=== PATIENT | male | born 1960 | race Caucasian/White ===

== ENCOUNTER 2020-02-27 11:20 | Emergency (ER) | payer OTHER, SELFPAY ==
[2020-02-27 11:47] VITALS: BP 187/99; PULSE 60; RESP 16; TEMP 37.5; O2SAT 95; BMI 40.6
--- NOTE | 2020-02-27 12:12 | ED_ITS ---
HPI - Back Pain/Injury General Chief Complaint: Back Pain/Injury Stated Complaint: back pain Time Seen by Provider: 02/27/20 11:22 Source: patient Mode of arrival: ambulatory Limitations: no limitations and language barrier (Romanian speaking ) History of Present Illness HPI Narrative: 59-year-old male with a past medical history of hypertension, chronic back pain here with acute on chronic low back pain x 5 days. Patient tells me he has had right lower back pain for about 5 days. The pain does sometimes radiate into the buttocks and posterior thigh with intermittent numbness. No injury, fall or trauma. No incontinence or bowel or bladder complaints. No saddle anesthesia. No fevers or chills. Taking naproxen at home which does seem to improve the pain briefly but then it returns. MD elicited complaint: back pain Related Data Previous Rx's Medication Instructions Recorded cyclobenzaprine 10 mg PO TID PRN #10 tab 02/27/20 lidocaine [Lidoderm] 1 patch TOPICAL DAILY #15 ea 02/27/20 naproxen 500 mg PO BID #20 tab 02/27/20 Allergies Allergy/AdvReac Type Severity Reaction Status Date / Time codeine [CODEINE] Allergy Intermediate RASH Verified 02/27/20 11:53 Review of Systems Review of Systems: Yes all other systems are reviewed and are negative Constitutional: Constitutional: Reports no additional constitutional complaints, Denies body ache(s), Denies chills, Denies fever(s), Denies headache(s) and Denies weakness Eyes: Eyes: Reports no additional eye complaints and Denies change in vision ENT: Reports system reviewed and no additional complaints, except as documented, Denies dizziness, Denies headache(s), Denies nasal congestion, Denies nasal discharge and Denies neck pain Cardiovascular: Cardiovascular: Reports no additional cardiovascular complaints, Denies chest pain, Denies leg edema and Denies dyspnea Respiratory: Respiratory: Reports no additional respiratory complaints, Denies cough and Denies dyspnea Gastrointestinal: Gastrointestinal: Reports no additional gastrointestinal complaints, Denies abdominal pain, Denies diarrhea, Denies nausea and Denies vomiting Genitourinary: Genitourinary: Denies urinary incontinence Musculoskeletal: Musculoskeletal: Reports no additional musculoskeletal complaints, Reports back pain, Denies arthralgias, Denies joint swelling, Denies neck pain, Reports numbness and Denies tingling Integumentary/Breasts: Skin/Breast: Reports system reviewed and no additional complaints, except as docu and Denies rash Neurologic: Reports system reviewed and no additional complaints, except as documented, Denies Abnormal speech present, Denies dizziness, Denies headache(s), Reports numbness, Denies tingling and Denies weakness PMFSH Past Medical History Source: old records reviewed, obtained from family and nursing notes reviewed Medical History Chronic back pain HTN (hypertension) Social History Social History Advance Directives: No Advance Directives Information Provided: No Physical Exam Vital Signs: Vital Signs: Vital Signs Temp Pulse Resp BP Pulse Ox 02/27/20 11:47 99.5 F 60 16 187/99 H 95 Body Mass Index 40.6 Const: General: cooperative, healthy appearing, comfortable and no acute distress Orientation/consciousness: patient oriented x3 Limitations: no limitations HENMT: Head: Yes normal to inspection Ears: hearing grossly normal bilaterally General nose exam: Normal external nose present Face and sinus: Yes normal facial exam Mouth: Normal oral and palatal mucosa present Throat: Yes posterior oropharynx normal Eyes: General: appearance normal, both eyes and all related structures Pupils: Equal, round and reactive pupils present Neck: Neck: Yes normal visual inspection Chest: Chest palpation & inspection: normal inspection of the chest Resp: Effort & Inspection: normal respiratory effort Auscultation: clear to auscultation bilaterally Cardio: Rate: regular rate Rhythm: regular rhythm Peripheral pulses: Peripheral pulses 2+ throughout GI: Inspection: Yes normal to inspection Palpation (GI): Soft to palpation and nontender Auscultation: normal bowel sounds : General: Yes no CVA tenderness Back/Spine/Pelvis: Other: Right lumbar soft tissue tenderness no midline tenderness, step-offs or deformities. Palpable muscle spasm. Pain is worsened with flexion,extension, lateral rotation of the lumbar spine. Back: no CVA tenderness Thoracic/Lumbar Spine: thoracic and lumbar spine normal to inspection and straight leg raise positive (right side ) Sacroiliac joints: on the right tender to palpation and by passive hyperextension of lower ext Skin: General skin exam: no rashes or lesions noted Neuro: General: patient oriented x3, no focal motor deficits and normal sensation to monofilament Cranial nerves: Yes CN's II-XII intact bilaterally and Yes Equal, round and reactive pupils present Cognition (Neuro): normal cognition Speech: No Abnormal speech present Gait exam (Neuro): Normal gait present Motor exam (neuro): 5/5 motor strength present throughout Sensory Exam: Normal double simultaneous stimulation for sensation Deep tendon reflexes (DTR's): Right patellar reflex intensity grade: 2+ and Left patellar reflex intensity grade: 2+ Extrem: General: Yes normal to inspection Course Course Course Narrative: Acute on chronic right lower back pain. No neurological deficits for red flag symptoms. The patient does have some posterior SI joint discomfort. Will check imaging, given IM Toradol and reassess. 1400- Exam consistent with right hip tendinitis. Patient is feeling improved after receiving Toradol here. Reviewed worrisome signs and symptoms and when to return to the emergency department. Comfortable discharge home. MDM - Back Pain/Injury Medical Records Attestation: I reviewed the patient's medical records. Lab Data Attestation: I reviewed the patient's lab results. Imaging Data right hip/pelvis xray: Attestation: I personally reviewed and interpreted this imaging study as follows: Radiologist's impression: EXAMINATION: XR HIP, RIGHT CLINICAL INFORMATION: No trauma. Pain. COMPARISON: None TECHNIQUE: AP and frog-leg lateral views of the right hip. AP view of the pelvis. FINDINGS: Mild to moderate osteoarthritis in the hips is characterized by prominent acetabular osteophytes as well as subchondral sclerosis. The joint spaces appear relatively well-preserved. No fractures. Enthesopathic spurring is present at the anterior superior iliac spines and at the greater trochanters. Foci of calcification at the right greater trochanter may correspond to calcific tendinitis (hydroxyapatite deposition disease) at the hip abductor and short external rotator insertions. Similar foci of hydroxyapatite evident disease are suspected at the origin of the left hamstring tendons of the left ischial tuberosity, measuring up to 4 mm in diameter. Soft tissues otherwise unremarkable. Degenerative spondylosis is present in the lower lumbar spine. XR/XR hip RT w PEL1V IMPRESSION: 1. Mild to moderate osteoarthritis in the hips. 2. Calcific tendinitis of the right greater trochanter and left ischial tuberosity. 3. Degenerative spondylosis in the lower lumbar spine. Discharge Plan Discharge Clinical Impression: Hip tendinitis Qualifiers: Laterality: right Qualified Code(s): M76.891 - Other specified enthesopathies of right lower limb, excluding foot Lumbar strain Qualifiers: Encounter type: initial encounter Qualified Code(s): S39.012A - Strain of muscle, fascia and tendon of lower back, initial encounter Patient Disposition: Home, Self-Care Instructions: Acute Low Back Pain (ED), Tendinitis (ED) Additional Instructions: Gentle stretching Heat or ice Follow-up with your PCP and back specialist. You may need referral for physical therapy. Prescriptions: New naproxen 500 mg tablet 500 mg PO BID Qty: 20 RF: 0 lidocaine [Lidoderm] 5 % adhesive patch,medicated 1 patch topical DAILY Qty: 15 RF: 0 cyclobenzaprine 10 mg tablet 10 mg PO TID PRN (Reason: muscle spasm) Qty: 10 RF: 0 Referrals: Physician,Unknown [Primary Care Provider] - 2 days Interventions: ED Discharge Assessment Last Done: 02/27/20 14:15 Discharge Date/Time: 02/27/20 14:15 Print Language: Romanian
--- NOTE | 2020-02-27 12:31 | XR_ITS ---
EXAMINATION: XR HIP, RIGHT CLINICAL INFORMATION: No trauma. Pain. COMPARISON: None TECHNIQUE: AP and frog-leg lateral views of the right hip. AP view of the pelvis. FINDINGS: Mild to moderate osteoarthritis in the hips is characterized by prominent acetabular osteophytes as well as subchondral sclerosis. The joint spaces appear relatively well-preserved. No fractures. Enthesopathic spurring is present at the anterior superior iliac spines and at the greater trochanters. Foci of calcification at the right greater trochanter may correspond to calcific tendinitis (hydroxyapatite deposition disease) at the hip abductor and short external rotator insertions. Similar foci of hydroxyapatite evident disease are suspected at the origin of the left hamstring tendons of the left ischial tuberosity, measuring up to 4 mm in diameter. Soft tissues otherwise unremarkable. Degenerative spondylosis is present in the lower lumbar spine. XR/XR hip RT w PEL1V IMPRESSION: 1. Mild to moderate osteoarthritis in the hips. 2. Calcific tendinitis of the right greater trochanter and left ischial tuberosity. 3. Degenerative spondylosis in the lower lumbar spine.
[2020-02-27] MEDS: Ketorolac Tromethamine 60 MG/2 ML VIAL IM (13:05)
== END 2020-02-27 14:15 | disposition home or self-care (01) ==
PROVIDERS: Emergency Provider Emergency Medicine
DX: S39.012A Strain of muscle, fascia and tendon of lower back, initial encounter (principal); M76.891 Other specified enthesopathies of right lower limb, excluding foot; I10 Essential (primary) hypertension; M79.605 Pain in left leg; M79.604 Pain in right leg; M25.552 Pain in left hip; M25.551 Pain in right hip; X58.XXXA Exposure to other specified factors, initial encounter; Y93.9 Activity, unspecified; Y92.9 Unspecified place or not applicable; Y99.9 Unspecified external cause status
CPT/HCPCS: 73502; 96372; 99283; 99284; J1885

== ENCOUNTER 2020-03-28 08:57 | Emergency (ER) | payer OTHER, SELFPAY ==
[2020-03-28 09:14] VITALS: BP 167/92; PULSE 76; RESP 20; TEMP 36.6; O2SAT 97; BMI 41.8
--- NOTE | 2020-03-28 09:44 | ED_ITS ---
HPI - Back Pain/Injury General Chief Complaint: Back Pain/Injury <Rafiq Falcon NP - Last Filed: 03/28/20 09:51> Stated Complaint: back pain,no inj <Rafiq Falcon NP - Last Filed: 03/28/20 09:51> Time Seen by Provider: 03/28/20 09:44 <Rafiq Falcon NP - Last Filed: 03/28/20 09:51> Source: patient <Rafiq Falcon NP - Last Filed: 03/28/20 09:51> Mode of arrival: ambulatory <Rafiq Falcon NP - Last Filed: 03/28/20 09:51> Limitations: no limitations <Rafiq Falcon NP - Last Filed: 03/28/20 09:51> History of Present Illness HPI Narrative: Pain is setting of chronic back pain. He was seen here a month ago for similar states acute exacerbation while he was trying to get out of bed and felt like a pull sensation in the right lower back. He was given muscle relaxant which work well from the last time he ran out in addition is given lidocaine but his short does not cover this. At this time he took naproxen prior to arrival and his pain has almost fully resolved. <Rafiq Falcon NP - Last Filed: 03/28/20 09:51> MD elicited complaint: back pain <Rafiq Falcon NP - Last Filed: 03/28/20 09:51> Pertinent past history: prior back pain <Rafiq Falcon NP - Last Filed: 03/28/20 09:51> Timing: constant <Rafiq Falcon NP - Last Filed: 03/28/20 09:51> Severity: mild <Rafiq Falcon NP - Last Filed: 03/28/20 09:51> Similar Symptoms Previously: Yes <Rafiq Falcon NP - Last Filed: 03/28/20 09:51> Quality: aching <Rafiq Falcon NP - Last Filed: 03/28/20 09:51> Radiation: none <Rafiq Falcon NP - Last Filed: 03/28/20 09:51> Exacerbating factors: movement <Rafiq Falcon NP - Last Filed: 03/28/20 09:51> Relieving factors: immobilization <Rafiq Falcon NP - Last Filed: 03/28/20 09:51> Context: other (Turn to get out of bed) <Rafiq Falcon NP - Last Filed: 03/28/20 09:51> Associated symptoms: denies other symptoms <Rafiq Falcon NP - Last Filed: 03/28/20 09:51> Treatments prior to arrival: NSAIDS <Rafiq Falcon NP - Last Filed: 03/28/20 09:51> Related Data Home Medications: Previous Rx's Medication Instructions Recorded cyclobenzaprine 10 mg PO TID PRN #10 tab 02/27/20 lidocaine [Lidoderm] 1 patch TOPICAL DAILY #15 ea 02/27/20 naproxen 500 mg PO BID #20 tab 02/27/20 cyclobenzaprine 10 mg PO TID PRN #20 tab 03/28/20 methylprednisolone [Medrol] 4 mg PO DAILY #7 tab 03/28/20 <Rafiq Falcon NP - Last Filed: 03/28/20 09:51> Allergies/Adverse Reactions: Allergies Allergy/AdvReac Type Severity Reaction Status Date / Time codeine [CODEINE] Allergy Intermediate RASH Verified 02/27/20 11:53 <Rafiq Falcon NP - Last Filed: 03/28/20 09:51> Review of Systems Review of Systems: Constitutional: No Weight loss, No Fever, No Chills, No Night Sweats, No Fatigue, No Malaise ENT/Mouth: No Hearing loss, No Ear Pain, No Nasal Congestion, No Sinus Pain, No Hoarseness, No sore throat, No Rhinorrhea, No Swallowing Difficulty Eyes: No Eye Pain, No Swelling, No Redness, No Foreign Body, No Discharge, No Vision Changes Cardiovascular: No Chest Pain, No SOB, No Dyspnea on Exertion, No Orthopnea, No Edema, No Palpitations Respiratory: No Cough, No Sputum, No Wheezing, No Smoke Exposure, No Dyspnea Gastrointestinal: No Nausea, No Vomiting, No Diarrhea, No Constipation, No abdominal Pain, No Hematochezia, No Melena Genitourinary: no irregular bleeding, No Dysuria, No Urinary Frequency, No Hematuria, No Urinary Incontinence, No Urgency, No Flank Pain, No Urinary Flow Changes, No Hesitancy Musculoskeletal: No joint pain, No Myalgias, No Joint Swelling Skin: No Skin Lesions, No rash Neuro: No Weakness, No Numbness, No Paresthesias, No Loss of Consciousness, No Dizziness, No Headache Psych: No Anxiety/Panic, No Depression, No SI/HI/AH/VH, No Social Issues Heme/Lymph: No Bruising, No Bleeding,No Lymphadenopathy Endocrine: No Polyuria, No Polydipsia, No Temperature Intolerance <Rafiq Falcon NP - Last Filed: 03/28/20 09:51> Yes all other systems are reviewed and are negative <Rafiq Falcon NP - Last Filed: 03/28/20 09:51> [facility] Past Medical History Source: unable to obtain <Rafiq Falcon NP - Last Filed: 03/28/20 09:51> Medical History: Medical History Chronic back pain HTN (hypertension) <Rafiq Falcon NP - Last Filed: 03/28/20 09:51> Social History Social History: Social History Advance Directives: No Advance Directives Information Provided: No <Rafiq Falcon NP - Last Filed: 03/28/20 09:51> Physical Exam Vital Signs: Vital Signs: Last Vital Signs Temp 98 F 03/28/20 09:14 Pulse 76 03/28/20 09:14 Resp 20 03/28/20 09:14 BP 167/92 H 03/28/20 09:14 Pulse Ox 97 03/28/20 09:14 Body Mass Index 41.8 Reviewed <Rafiq Falcon NP - Last Filed: 03/28/20 09:51> Vital Signs: Last Vital Signs Temp 98 F 03/28/20 09:14 Pulse 76 03/28/20 09:14 Resp 03/28/20 09:14 BP 167/92 H 03/28/20 09:14 Pulse Ox 97 03/28/20 09:14 Body Mass Index 41.8 <Alirio Lay MD - Last Filed: 03/28/20 09:54> Const: General: cooperative and healthy appearing; No acute distress or intoxicated appearing <Rafiq Falcon NP - Last Filed: 03/28/20 09:51> Nutritional Appearance: average body habitus <[facility] Falcon [facility] Last Filed: 03/28/20 09:51> Orientation/consciousness: patient oriented x3 <[facility] Last Filed: 03/28/20 09:51> HENMT: Head: Yes normal to inspection <[facility] Falcon [facility] Last Filed: 03/28/20 09:51> Ears: hearing grossly normal bilaterally <[facility] Last Filed: 03/28/20 09:51> Eyes: General: appearance normal, both eyes and all related structures <[facility] Last Filed: 03/28/20 09:51> Visual Rutledge: normal visual rutledge by confrontation <[facility] Last Filed: 03/28/20 09:51> Neck: Neck: Yes normal visual inspection, No positive Brudzinski's sign, No positive Kernig's sign and No tender <[facility] Last Filed: 03/28/20 09:51> Thyroid: Thyroid normal <[facility] Last Filed: 03/28/20 09:51> Chest: Chest palpation & inspection: normal inspection of the chest <[facility] Last Filed: 03/28/20 09:51> Resp: Effort & Inspection: normal respiratory effort <[facility] Last Filed: 03/28/20 09:51> Cardio: Jugular venous distension: no JVD <[facility] Last Filed: 03/28/20 09:51> GI: Inspection: Yes normal to inspection <[facility] Last Filed: 03/28/20 09:51> Percussion: Yes normal to percussion <[facility] Last Filed: 03/28/20 09:51> Auscultation: normal bowel sounds <[facility] Last Filed: 03/28/20 09:51> : General: Yes no CVA tenderness <[facility] Last Filed: 03/28/20 09:51> Back/Spine/Pelvis: Other: No midline to palpation. No step-off. Negative Leg lift. <[facility] - Last Filed: 03/28/20 09:51> Back: no CVA tenderness <Rafiq Falcon NP - Last Filed: 03/28/20 09:51> Thoracic/Lumbar Spine: paraspinal muscle tenderness (Right-sided) <Rafiq Falcon NP - Last Filed: 03/28/20 09:51> Skin: General skin exam: no rashes or lesions noted <Rafiq Falcon NP - Last Filed: 03/28/20 09:51> Neuro: General: patient oriented x3 <Rafiq Falcon NP - Last Filed: 03/28/20 09:51> Extrem: General: Yes normal to inspection <Rafiq Falcon NP - Last Filed: 03/28/20 09:51> Course Course Course Narrative: Imaging reviewed from previous visit, AP strain type injury in the setting of chronic low back pain with acute exacerbation. Has Naprosyn at home proper use reviewed will go ahead and give a short course of muscle relaxants with clear return follow-up instructions. No low back pain red flags. No GI symptoms. Ambulatory status with gait. Stable for discharge. <Rafiq Falcon NP - Last Filed: 03/28/20 09:51> I have reviewed the chart <Alirio Lay MD - Last Filed: 03/28/20 09:54> Discharge Plan Discharge Clinical Impression: Strain of lumbar region <Rafiq Falcon NP - Last Filed: 03/28/20 09:51> Patient Disposition: Home, Self-Care <Rafiq Falcon NP - Last Filed: 03/28/20 09:51> Instructions: Low Back Strain (ED), Lower Back Exercises (ED), Core Strengthening Exercises (ED) <Rafiq Falcon NP - Last Filed: 03/28/20 09:51> Prescriptions: New cyclobenzaprine 10 mg tablet 10 mg PO TID PRN (Reason: muscle spasm) Qty: 20 RF: 0 methylprednisolone [Medrol] 4 mg tablet 4 mg PO DAILY Qty: 7 RF: 0 No Action naproxen 500 mg tablet 500 mg PO BID Qty: 20 RF: 0 lidocaine [Lidoderm] 5 % adhesive patch,medicated 1 patch topical DAILY Qty: 15 RF: 0 cyclobenzaprine 10 mg tablet 10 mg PO TID PRN (Reason: muscle spasm) Qty: 10 RF: 0 <Rafiq Falcon NP - Last Filed: 03/28/20 09:51> Referrals: Physician,Unknown [Primary Care Provider] - 1 week ([facility]) <Rafiq Falcon NP - Last Filed: 03/28/20 09:51> Interventions: ED Discharge Assessment Last Done: 03/28/20 09:53 <Rafiq Falcon NP - Last Filed: 03/28/20 09:51>
== END 2020-03-28 09:56 | disposition home or self-care (01) ==
PROVIDERS: Emergency Provider Emergency Medicine Emergency Medical Services
DX: S39.012A Strain of muscle, fascia and tendon of lower back, initial encounter (principal); I10 Essential (primary) hypertension; X58.XXXA Exposure to other specified factors, initial encounter; Y93.9 Activity, unspecified; Y92.9 Unspecified place or not applicable; Y99.9 Unspecified external cause status; Z79.899 Other long term (current) drug therapy
CPT/HCPCS: 99283

== ENCOUNTER 2020-04-09 13:19 | Emergency (ER) | payer OTHER, SELFPAY ==
[2020-04-09 13:22] VITALS: BP 179/71; PULSE 77; RESP 20; TEMP 36.3; O2SAT 97; BMI 43.5
--- NOTE | 2020-04-09 13:44 | ED.WOUNDLAC ---
HPI - Wound/Laceration General Chief Complaint: Wound/Laceration Stated Complaint: lump on lt arm Time Seen by Provider: 04/09/20 13:44 History of Present Illness HPI narrative: patient complains of painful red area on left forearm for 2 days Related Data Previous Rx's Medication Instructions Recorded cyclobenzaprine 10 mg PO TID PRN #10 tab 02/27/20 lidocaine [Lidoderm] 1 patch TOPICAL DAILY #15 ea 02/27/20 naproxen 500 mg PO BID #20 tab 02/27/20 cyclobenzaprine 10 mg PO TID PRN #20 tab 03/28/20 methylprednisolone [Medrol] 4 mg PO DAILY #7 tab 03/28/20 cephalexin [Keflex] 500 mg PO QID 7 Days #28 cap 04/09/20 doxycycline hyclate 100 mg PO BID 7 Days #14 cap 04/09/20 Allergies Allergy/AdvReac Type Severity Reaction Status Date / Time codeine [CODEINE] Allergy Intermediate RASH Verified 04/09/20 13:22 Review of Systems Review of Systems: positive for painful red area on forearm No fever no chills no dizziness no weakness no joint pain no other rash Yes all other systems are reviewed and are negative [facility] Past Medical History Source: nursing notes reviewed Medical History Chronic back pain HTN (hypertension) Social History Social History Advance Directives: No Advance Directives Information Provided: No Physical Exam Vital Signs: Vital Signs: Last Vital Signs Temp 97.3 F 04/09/20 13:22 Pulse 77 04/09/20 13:22 Resp 20 04/09/20 13:22 BP 179/71 H 04/09/20 13:22 Pulse Ox 97 04/09/20 13:22 Body Mass Index 43.5 general appearance a and O x3 comfortable no acute distress exam normocephalic atraumatic neck is supple respiratory no acute distress Exam of the extremities the left forearm has a 3 cm x 2 cm area of induration and redness without fluctuance there is no surrounding erythema it is tender it is closed there is no open skin, it is neurovascular intact distal and there is no lymphangitis and there is full range of motion in the left elbow and wrist Course Course Course Narrative: patient is discharged on antibiotic, no abscess no procedure needed now Discharge Plan Discharge Clinical Impression: Cellulitis of forearm, left Patient Disposition: Home, Self-Care Additional Instructions: we started antibiotics for skin infection Return to ER any time for spreading redness, increased pain and swelling, fever, red stripe up arm, any sign of worsen infection or any concerns follow with primary doctor in 2-3 days or return to ER for recheck if not better Prescriptions: New doxycycline hyclate 100 mg capsule 100 mg PO BID 7 Days Qty: 14 RF: 0 cephalexin [Keflex] 500 mg capsule 500 mg PO QID 7 Days Qty: 28 RF: 0 No Action naproxen 500 mg tablet 500 mg PO BID Qty: 20 RF: 0 lidocaine [Lidoderm] 5 % adhesive patch,medicated 1 patch topical DAILY Qty: 15 RF: 0 cyclobenzaprine 10 mg tablet 10 mg PO TID PRN (Reason: muscle spasm) Qty: 10 RF: 0 cyclobenzaprine 10 mg tablet 10 mg PO TID PRN (Reason: muscle spasm) Qty: 20 RF: 0 methylprednisolone [Medrol] 4 mg tablet 4 mg PO DAILY Qty: 7 RF: 0 Interventions: ED Discharge Assessment Last Done: 04/09/20 14:00 Discharge Date/Time: 04/09/20 14:00
[2020-04-09] MEDS: cephALEXin 500 MG CAPSULE PO (13:58)
== END 2020-04-09 14:00 | disposition home or self-care (01) ==
PROVIDERS: Emergency Provider Emergency Medicine Emergency Medical Services
DX: L03.114 Cellulitis of left upper limb (principal); M79.632 Pain in left forearm; I10 Essential (primary) hypertension
CPT/HCPCS: 99283

== ENCOUNTER 2021-02-28 15:24 | Emergency (ER) | payer OTHER, SELFPAY ==
[2021-02-28 15:38] VITALS: BP 134/86; PULSE 62; RESP 16; TEMP 36.5; O2SAT 96; BMI 43.5
--- NOTE | 2021-02-28 15:53 | ED.EYEPROB ---
HPI - Eye Problem General Chief complaint: Eye Problems Stated complaint: Eye pain Time Seen by Provider: 02/28/21 15:47 Source: patient Mode of arrival: ambulatory Limitations: no limitations History of Present Illness HPI Narrative: 60-year-old male presenting with 1 week left eye redness, pain, and discharge. He states every morning he is waking up with crustiness to his left eye. There is yellow discharge at times as well. His eye conley and is painful throughout the day. He reports having several lower teeth removed 8 days ago in preparation to get implants done. His left eye pain and redness started the day after his procedure and he is concerned they may be related. He continues to be on antibiotics after his teeth extractions. He denies any fever or chills. He denies any vision changes. He denies any foreign body sensation. MD chief complaint: eye pain and eye redness Onset (ago): week(s) (1) Onset description: gradual Duration: constant Location: left eye Eye Symptoms: burning, redness, pain and discharge Place: home Mechanism: none Severity: moderate Severity scale (1-10): 6 If Pain, Quality: burning and aching Associated symptoms: none Treatments Prior to Arrival: none Related Data Patient tetanus UTD: Yes Previous Rx's Medication Instructions Recorded cyclobenzaprine 10 mg tablet 10 mg PO TID PRN #10 tab 02/27/20 lidocaine 5 % topical patch 1 patch TOPICAL DAILY #15 ea 02/27/20 (Lidoderm) naproxen 500 mg tablet 500 mg PO BID #20 tab 02/27/20 cyclobenzaprine 10 mg tablet 10 mg PO TID PRN #20 tab 03/28/20 methylprednisolone 4 mg tablet 4 mg PO DAILY #7 tab 03/28/20 (Medrol) cephalexin 500 mg capsule (Keflex) 500 mg PO QID 7 Days #28 cap 04/09/20 doxycycline hyclate 100 mg capsule 100 mg PO BID 7 Days #14 cap 04/09/20 polymyxin B sulfate 10,000 1 drp OPHTHALMIC (EYE) Q3H 7 Days 02/28/21 unit-trimethoprim 1 mg/mL eye #10 ml drops (Polytrim) Allergies Allergy/AdvReac Type Severity Reaction Status Date / Time codeine [CODEINE] Allergy Intermediate RASH Verified 04/09/20 13:22 Review of Systems Review of Systems: Constitutional: No Fever, No Chills ENT/Mouth: No sore throat, No Rhinorrhea, No Swallowing Difficulty Eyes: + Eye Pain, No Swelling, +Redness, +Discharge, No vision changes Cardiovascular: No Chest Pain, No SOB Gastrointestinal: No Nausea, No Vomiting Musculoskeletal: No joint pain, No Myalgias Skin: No Skin Lesions, No rash Neuro: No Dizziness, No Headache PMFSH Past Medical History Medical History Chronic back pain HTN (hypertension) Social History Social History Advance Directives: No Advance Directives Information Provided: Yes Physical Exam Vital Signs: Vital Signs: Last Vital Signs Temp 97.7 F 02/28/21 15:38 Pulse 62 02/28/21 15:38 Resp 16 02/28/21 15:38 BP 134/86 02/28/21 15:38 Pulse Ox 96 02/28/21 15:38 Body Mass Index 43.5 Appearance: Alert. Oriented X3. No acute distress. HEENT: Left eye with normal periorbital findings, left sclera is diffusely injected in, mucoid discharge medially. No swelling or redness of the eyelids. PERRLA, EOMI. CVS: Normal heart rate and rhythm. Pulses normal. Respiratory: No respiratory distress. Skin: Skin warm and dry. Normal skin color. Normal skin turgor. No rashes. Extremities: atraumatic, no LE edema Neuro: Oriented X 3. No motor deficit. No sensory deficit. Course Course Course Narrative: 60-year-old male presenting with 1 week worsening left eye redness, pain, drainage. No vision changes. No signs of periorbital cellulitis on exam. His clinical presentation is consistent with bacterial conjunctivitis. Will treat with topical antibiotic drops and discharged home. Stable for DC. Critical Care Time Critical Care Time Critical Care Time: No Discharge Plan Discharge Clinical Impression: Bacterial conjunctivitis Patient Disposition: Home, Self-Care Instructions: Conjunctivitis (ED) Additional Instructions: Use the prescribed antibiotic drop every 3 hours for 1 week. Follow-up with your doctor as needed Prescriptions: New polymyxin B sulf-trimethoprim [Polytrim] 10,000 unit- 1 mg/mL drops 1 drp ophthalmic (eye) Q3H 7 Days Qty: 10 RF: 0 No Action naproxen 500 mg tablet 500 mg PO BID Qty: 20 RF: 0 lidocaine [Lidoderm] 5 % adhesive patch,medicated 1 patch topical DAILY Qty: 15 RF: 0 cyclobenzaprine 10 mg tablet 10 mg PO TID PRN (Reason: muscle spasm) Qty: 10 RF: 0 cyclobenzaprine 10 mg tablet 10 mg PO TID PRN (Reason: muscle spasm) Qty: 20 RF: 0 methylprednisolone [Medrol] 4 mg tablet 4 mg PO DAILY Qty: 7 RF: 0 doxycycline hyclate 100 mg capsule 100 mg PO BID 7 Days Qty: 14 RF: 0 cephalexin [Keflex] 500 mg capsule 500 mg PO QID 7 Days Qty: 28 RF: 0
== END 2021-02-28 15:59 | disposition home or self-care (01) ==
PROVIDERS: Emergency Provider Emergency Medicine Emergency Medical Services
DX: H10.89 Other conjunctivitis (principal); I10 Essential (primary) hypertension
CPT/HCPCS: 99283

== ENCOUNTER 2021-08-21 10:34 | Emergency (ER) | payer OTHER, SELFPAY | END 2021-08-21 13:02 | disposition left against medical advice (07) | PROVIDERS: Emergency Provider Emergency Medicine | DX: M79.10 Myalgia, unspecified site (principal) ==

== ENCOUNTER 2022-01-22 09:44 | Emergency (ER) | payer OTHER, SELFPAY ==
--- NOTE | ~2022-01-22 | CT_ITS ---
EXAMINATION: CT ABDOMEN AND PELVIS WITHOUT CONTRAST CLINICAL INFORMATION: Left flank and left lower quadrant and back pain. COMPARISON: None TECHNIQUE: Multidetector volumetric imaging was performed from the superior aspect of the liver through the pubic symphysis. Sagittal and coronal reformatted images were obtained on the technologist's workstation. This CT examination was performed using dose optimization techniques as appropriate, variously including the following: *Automated exposure control *Adjustment of mA and/or kV according to patient size (this includes techniques or standardized protocols for targeted exams where dose is matched to indication/reason for exam; i.e. extremities or head) *Use of iterative reconstruction technique DLP: 980 mGy-cm FINDINGS: LUNG BASES: Minimal dependent basilar atelectasis. LIVER, GALLBLADDER, AND BILIARY TREE: Cirrhotic morphology with hypertrophy of the left liver lobe and caudate as well as nodular liver surface contour. No appreciable liver lesion. No biliary ductal dilation. The gallbladder is unremarkable with no evidence of radiopaque gallstones, gallbladder wall thickening, or obvious pericholecystic inflammatory changes. PANCREAS: Unremarkable. SPLEEN: Unremarkable. ADRENAL GLANDS: Unremarkable. KIDNEYS AND URETERS: The kidneys are normal in size, shape, and attenuation. No hydronephrosis, hydroureter, or calculi seen. Mild symmetric perirenal fascial edema/stranding, nonspecific finding. BLADDER: Prominently distended. No bladder wall thickening. GASTROINTESTINAL TRACT: No dilated bowel loops. No bowel wall thickening. Normal appendix. Moderate amount of formed stool throughout the nondilated colon. No ascites or free air. ABDOMINAL WALL: Small fat-containing umbilical hernia. LYMPH NODES: Mildly enlarged portacaval and peripancreatic lymph nodes measuring 1.1 cm in short axis, nonspecific. No other lymphadenopathy. VASCULAR: Mildly tortuous abdominal aorta without aneurysm. Vascular calcifications. PELVIC VISCERA: Unremarkable. OSSEOUS STRUCTURES: No acute fracture or suspicious osseous lesion. Multilevel degenerative disc disease. Spinal stimulator lead tips terminate in the dorsal spinal canal at T8 level. CT/CT abdomen pelvis wo IV con IMPRESSION: 1. No acute intra-abdominal process identified. 2. Moderate amount of formed stool throughout the colon. 3. Prominently distended urinary bladder. 4. Cirrhotic liver morphology.
[2022-01-22 10:13] VITALS: BP 129/63; PULSE 280; RESP 18; TEMP 36.6; O2SAT 96; BMI 45.1
[2022-01-22 10:28] LABS: Appearance Urine Clear; Color Urine Yellow; Glucose Urine UA Negative (Negative); Leukocyte Esterase Urine Negative (Negative); Nitrite Urine Negative (Negative); Urine Blood Negative (Negative); Urine Ketones Negative (Negative); Urine Protein Negative (Neg-Trace)
--- NOTE | 2022-01-22 13:29 | ED_ITS ---
HPI - Back Pain/Injury General Chief Complaint: Back Pain/Injury Stated Complaint: L flank pain/back pain Time Seen by Provider: 01/22/22 12:17 Source: patient and translator interpreter Mode of arrival: ambulatory Limitations: no limitations History of Present Illness HPI Narrative: 61-year-old male with a history of chronic low back pain status post nerve stimulator placement several years ago who presents to the ER for evaluation of acute on chronic low back pain that started almost 3 weeks ago. The he reports the pain started when he was trying to get up out of bed was unable to do so on his own. His helped him up and he has had pain in his left greater than right lower back since then. It is worse with movement and walking. He feels like he has a sharp stabbing pain deep inside his left lower back and left flank. He denies any dysuria, hematuria, urinary frequency urgency. No fever or chills. He reports the pain at time shoots down his left leg and around to his left hip and groin. No testicular pain. No bowel or bladder incontinence. No weakness in his lower extremities. MD elicited complaint: back pain Pertinent past history: prior back pain Onset (ago): week(s) (3) Timing: constant Severity: moderate Pain scale (0-10): 6 Quality: stabbing Location: right lower back and left lower back Radiation: abdomen, groin, buttocks and left upper leg Exacerbating factors: movement and walking Relieving factors: immobilization and supine Associated symptoms: abdominal pain Treatments prior to arrival: NSAIDS Work related injury: No Related Data Previous Rx's Medication Instructions Recorded cyclobenzaprine 10 mg tablet 10 mg PO TID PRN muscle spasm #10 02/27/20 tabs lidocaine 5 % topical patch 1 patch topical DAILY #15 ea 02/27/20 (Lidoderm) naproxen 500 mg tablet 500 mg PO BID #20 tabs 02/27/20 cyclobenzaprine 10 mg tablet 10 mg PO TID PRN muscle spasm #20 03/28/20 tabs methylprednisolone 4 mg tablet 4 mg PO DAILY #7 tabs 03/28/20 (Medrol) cephalexin 500 mg capsule (Keflex) 500 mg PO QID 7 days #28 caps 04/09/20 doxycycline hyclate 100 mg capsule 100 mg PO BID 7 days #14 caps 04/09/20 polymyxin B sulfate 10,000 1 drp ophthalmic (eye) Q3H 7 days 02/28/21 unit-trimethoprim 1 mg/mL eye #10 mL drops (Polytrim) cyclobenzaprine 10 mg tablet 10 mg PO TID PRN muscle spasm #14 01/22/22 tabs lidocaine 5 % topical patch 1 patch topical DAILY #15 ea 01/22/22 oxycodone 5 mg tablet 5 mg PO Q8H PRN severe pain (scale 01/22/22 score 7-10) #5 tabs Allergies Allergy/AdvReac Type Severity Reaction Status Date / Time codeine [CODEINE] Allergy Intermediate RASH Verified 04/09/20 13:22 Review of Systems Review of Systems: Constitutional: No Fever, No Chills ENT/Mouth: No sore throat, No Rhinorrhea, No Swallowing Difficulty Cardiovascular: No Chest Pain, No SOB, No Orthopnea, No Edema Respiratory: No Cough, No Sputum, No Wheezing, No dyspnea Gastrointestinal: No Nausea, No Vomiting, No Diarrhea, +abdominal Pain, No Hematochezia, No Melena Genitourinary: No Dysuria, No Urinary Frequency, No Hematuria Musculoskeletal: + joint pain, + Myalgias Skin: No Skin Lesions, No rash Neuro: No Weakness, No Numbness, No Dizziness, No Headache Psych: + Anxiety/Panic, No Depression Heme/Lymph: No Bruising, No Lymphadenopathy Endocrine: No Polyuria, No Polydipsia PMFSH Past Medical History Medical History Chronic back pain HTN (hypertension) Social History Social History Advance Directives: No Advance Directives Information Provided: Yes Physical Exam Vital Signs: Vital Signs: Last Vital Signs Temp 98 F 01/22/22 10:13 Pulse 280 H 01/22/22 10:13 Resp 18 01/22/22 10:13 BP 129/63 01/22/22 10:13 Pulse Ox 96 01/22/22 10:13 O2 Del Method 01/22/22 10:13 BMI result Body Mass Index 45.1 Appearance: Alert. Oriented X3. No acute distress. Eyes: Pupils equal, round and reactive to light. ENT: Pharynx normal. Neck: Normal inspection. Neck supple. CVS: Normal heart rate and rhythm. Pulses normal. Respiratory: No respiratory distress. Breath sounds normal. Abdomen: Obese, Soft with tenderness to deep palpation of the LLQ, no rebound or guarding, normal. +BS x4 Back: soft tissue tenderness of the lumbar area bilaterally, no midline tenderness. There is a palpable nerve stimulator may need to skin in the left lower flank. No overlying skin changes or other palpable masses. Skin: Skin warm and dry. Normal skin color. Normal skin turgor. No rashes. Extremities: No lower extremity edema. Neuro: Oriented X 3. No motor deficit. No sensory deficit. Slow but steady gait Course Course Course Narrative: 61-year-old male with history of chronic low back pain status post implanted nerve stimulator several years ago who presents to the ER for exacerbation of lower back pain for the last 2-3 weeks. This started when he was trying to get up out of bed and was unable to on his own, resulting in left worse than right low back pain. He denies any red flag symptoms of low back pain. He feels like he has a hernia or something sticking out of his back where his nerve stimulator is. Not able to palpate anything on examination. he has bilateral soft tissue tenderness and spasm. Most likely muscular pain but will get CT per patient request. Reevaluation(s) Reevaluation #1: urinalysis negative for infection. CT scan is showing no acute intra-abdominal process. He has moderate amount of stool through the colon. His nerve stimulator is in the appropriate location with the lead tips terminating the dorsal spinal canal at T8 level. There is multilevel degenerative disc disease without any acute fractures or suspicious osseous lesions. The results were discussed with the patient using staff electrical engineer. Will treat with muscle relaxer, short course of pain medication and Lidoderm patches. He will follow- up with his PCP. Return precautions were discussed. Stable for DC home. MDM - Back Pain/Injury Lab Data Labs: Lab Results 01/22/22 Range/Units 10:20 Urine Color Yellow Urine Appearance Clear Urine pH 6.0 (5.0-9.0) Ur Specific [place] 1.020 (1.005-1.025) Urine Protein Negative (Neg-Trace) mg/dL Urine Glucose (UA) Negative (Negative) mg/dL Urine Ketones Negative (Negative) mg/dL Urine Blood Negative (Negative) Urine Nitrite Negative (Negative) Ur Leukocyte Esterase Negative (Negative) Discharge Plan Discharge Clinical Impression: Lumbar radiculopathy Patient Disposition: Home, Self-Care Instructions: Low Back Strain (ED), Lower Back Exercises (ED) Additional Instructions: Your CT scan today showed: 1. No acute intra-abdominal process identified. 2. Moderate amount of formed stool throughout the colon. 3. Prominently distended urinary bladder. 4. Cirrhotic liver morphology.? No bending, lifting or twisting. Use ice several times per day for 20 minutes at a time for the next 48 hours and then change to heat. Take medications as prescribed to help with pain and discomfort. Follow up with your Primary Care Doctor this week. If your pain worsens, if you develop new numbness, tingling, weakness, loss of function or incontinence call 911 or come back to the ER right away for evaluation. [place] tomograf?a computarizada de hoy mostr?: 1. No se identific? consuelo?n proceso intraabdominal magda. 2. Cantidad moderada de heces formadas en todo el colon. 3. Vejiga urinaria prominentemente distendida. 4. Morfolog?a del h?gado cirr?pravin. Sin doblar, levantar o torcer. Use hielo varias veces al d?a gricelda 20 minutos a la vez gricelda las pr?ximas 48 horas y luego cambie a calor. Ezel los medicamentos seg?n lo prescrito para ayudar con el dolor y la incomodidad. Evan un seguimiento con whitmore m?dico de atenci?n primaria esta semana. Si whitmore dolor empeora, si desarrolla un nuevo entumecimiento, hormigueo, mounika ilidad, p?rdida de funci?n o incontinencia, llame al 911 o regrese a la kirit de emergencias de inmediato para tim evaluaci?n. Prescriptions: New cyclobenzaprine 10 mg tablet 10 mg PO TID PRN (Reason: muscle spasm) Qty: 14 0RF lidocaine 5 % adhesive patch,medicated 1 patch topical DAILY Qty: 15 0RF Rx Instructions: leave on most painful area for up to 12 hrs oxycodone 5 mg tablet 5 mg PO Q8H PRN (Reason: severe pain (scale score 7-10)) Qty: 5 0RF Rx Instructions: Partial Fill upon patient request. No Action naproxen 500 mg tablet 500 mg PO BID Qty: 20 0RF lidocaine [Lidoderm] 5 % adhesive patch,medicated 1 patch topical DAILY Qty: 15 0RF Rx Instructions: leave on most painful area for up to 12 hrs cyclobenzaprine 10 mg tablet 10 mg PO TID PRN (Reason: muscle spasm) Qty: 10 0RF cyclobenzaprine 10 mg tablet 10 mg PO TID PRN (Reason: muscle spasm) Qty: 20 0RF methylprednisolone [Medrol] 4 mg tablet 4 mg PO DAILY Qty: 7 0RF doxycycline hyclate 100 mg capsule 100 mg PO BID 7 Days Qty: 14 0RF cephalexin [Keflex] 500 mg capsule 500 mg PO QID 7 Days Qty: 28 0RF polymyxin B sulf-trimethoprim [Polytrim] 10,000 unit- 1 mg/mL drops 1 drp ophthalmic (eye) Q3H 7 Days Qty: 10 0RF Rx Instructions: while awake; do not exceed 6 doses in 24 hours Print Language: Gibraltarian
[2022-01-22] MEDS: Acetaminophen 325 MG TABLET 975 MG PO (13:41)
[2022-01-22] MEDS: oxyCODONE HCl Immed Release 5 MG TABLET 10 MG PO (13:41)
[2022-01-22 16:07] VITALS: PULSE 49; O2SAT 96
== END 2022-01-22 16:27 | disposition home or self-care (01) ==
PROVIDERS: Emergency Provider Emergency Medicine
DX: M54.16 Radiculopathy, lumbar region (principal); I10 Essential (primary) hypertension
CPT/HCPCS: 74176; 81003; 99283; 99284

== ENCOUNTER → 2022-06-18 13:56 | Outpatient (BNVA) | payer OTHER, SELFPAY | PROVIDERS: Visit Provider Anesthesiology | DX: T85.192A Other mechanical complication of implanted electronic neurostimulator of spinal cord electrode (lead), initial encounter (principal); G89.4 Chronic pain syndrome | CPT/HCPCS: 99202 ==

== ENCOUNTER 2022-08-26 11:11 | Emergency (ER) | payer OTHER, SELFPAY ==
--- NOTE | ~2022-08-26 | XR_ITS ---
EXAMINATION: XR CHEST CLINICAL INFORMATION: Chest pain. COMPARISON: None available. TECHNIQUE: 2 views of the chest were obtained. FINDINGS: No significant abnormality is noted involving the heart, lungs, mediastinum, bony thorax or soft tissues. Spinal simulation leads terminating at the level of T8 without overt abnormality. XR/XR chest 2V IMPRESSION: No acute cardiopulmonary process.
--- NOTE | 2022-08-26 11:13 | ECG_ITS ---
Test Reason : CP Blood Pressure : / mmHG Vent. Rate : 077 BPM Atrial Rate : 077 BPM P-R Int : 186 ms QRS Dur : 080 ms QT Int : 364 ms P-R-T Axes : 045 064 049 degrees QTc Int : 411 ms Normal sinus rhythm Possible Left atrial enlargement Low voltage QRS Borderline ECG When compared with ECG of 22-JAN-2020 16:28, Nonspecific T wave abnormality, improved in Inferior leads Nonspecific T wave abnormality no longer evident in Lateral leads Referred By: Nick Mcginnis Electronically Signed By:Nate Falcon
[2022-08-26 11:14] VITALS: BP 144/61; PULSE 80; RESP 19; TEMP 37.4; O2SAT 96; BMI 44.1
--- NOTE | 2022-08-26 11:16 | ED.GENADULT ---
HPI - General Adult General Chief complaint: General Medical <Nick Mcginnis - Last Filed: 08/26/22 11:17> Stated complaint: CP/Upper body pain <Nick Mcginnis - Last Filed: 08/26/22 11:17> Time Seen by Provider: 08/26/22 12:15 <Nick Mcginnis - Last Filed: 08/26/22 11:17> Source: patient <Russel Rg MD - Last Filed: 08/26/22 13:07> Mode of arrival: ambulatory <Russel Rg MD - Last Filed: 08/26/22 13:07> Limitations: language barrier (Malagasy speaking, information services manager used) <Russel Rg MD - Last Filed: 08/26/22 13:07> History of Present Illness HPI narrative: 61-year-old male who presents emergency department for evaluation upper back, chest and right flank pain. The patient states that he has had pain for approximately 7 days. He states that he had to travel to [place] causes father was ill any flew on a plane on 08/22/2022. He states that he was sleeping a very uncomfortable bed and was unable to sleep. He states that since getting back from [facility] he has had severe pain in his shoulders and upper back he states that his muscles are going into spasm and the pain is worse with movement. He states he is now getting pain in his chest as well which she describes as sharp pain which is worse with movement. He denied fever, chills, nausea, vomiting, shortness of breath, dyspnea on exertion. He denied numbness or weakness of his extremities. Does have a history of chronic back pain is had surgeries on his back and he does have a spine neurostimulator. <Russel Rg MD - Last Filed: 08/26/22 13:07> Related Data Home medications: Home Medications Medication Instructions Recorded Confirmed lidocaine-prilocaine 2.5 %-2.5 % g topical DAILY 06/18/22 06/18/22 topical cream lisinopril 20 1 tab PO DAILY 06/18/22 06/18/22 mg-hydrochlorothiazide 25 mg tablet metoprolol succinate 25 mg 25 mg PO DAILY 06/18/22 06/18/22 tablet,extended release 24 hr rosuvastatin 20 mg tablet 20 mg PO BEDTIME 06/18/22 06/18/22 Previous Rx's Medication Instructions Recorded naproxen 500 mg tablet 500 mg PO BID #20 tabs 02/27/20 cyclobenzaprine 10 mg tablet 10 mg PO TID PRN muscle spasm #20 03/28/20 tabs methylprednisolone 4 mg tablet 4 mg PO DAILY #7 tabs 03/28/20 (Medrol) cephalexin 500 mg capsule (Keflex) 500 mg PO QID 7 days #28 caps 04/09/20 doxycycline hyclate 100 mg capsule 100 mg PO BID 7 days #14 caps 04/09/20 polymyxin B sulfate 10,000 1 drp ophthalmic (eye) Q3H 7 days 02/28/21 unit-trimethoprim 1 mg/mL eye #10 mL drops (Polytrim) oxycodone 5 mg tablet 5 mg PO Q8H PRN severe pain (scale 01/22/22 score 7-10) #5 tabs cyclobenzaprine 10 mg tablet 10 mg PO TID PRN muscle pain or 08/26/22 spasm #20 tabs oxycodone 5 mg tablet 5 mg PO Q6H PRN pain #14 tabs 08/26/22 <Nick Mcginnis - Last Filed: 08/26/22 11:17> Allergies/adverse reactions: Allergies Allergy/AdvReac Type Severity Reaction Status Date / Time codeine [CODEINE] Allergy Intermediate RASH Verified 08/26/22 11:14 <Nick Mcginnis - Last Filed: 08/26/22 11:17> Review of Systems Review of Systems: Yes all other systems are reviewed and are negative <Russel Rg MD - Last Filed: 08/26/22 13:07> [facility] Past Medical History [facility] Narrative: Social history: He denies tobacco use. He states he occasionally drinks alcohol. He denies drug use. <Russel Rg MD - Last Filed: 08/26/22 13:07> Medical History: Medical History Chronic back pain HTN (hypertension) <Nick Mcginnis - Last Filed: 08/26/22 11:17> Social History Social History: Social History Advance Directives: No Advance Directives Information Provided: Yes <Nick Mcginnis - Last Filed: 08/26/22 11:17> Physical Exam ED Vital Signs: Vital Signs - 24 hr 08/26/22 11:14 Temperature 99.4 F Pulse Rate 80 Respiratory Rate 19 Blood Pressure 144/61 H Pulse Oximetry 96 Oxygen Delivery Method Room Air BMI result Body Mass Index 44.1 <Nick Mcginnis - Last Filed: 08/26/22 11:17> Vital Signs - 24 hr 08/26/22 11:14 Temperature 99.4 F Pulse Rate 80 Respiratory Rate 19 Blood Pressure 144/61 H Pulse Oximetry 96 Oxygen Delivery Method Room Air BMI result Body Mass Index 44.1 <Russel Rg MD - Last Filed: 08/26/22 13:07> Const General: cooperative and no acute distress <Russel Rg MD - Last Filed: 08/26/22 13:07> Orientation/consciousness: oriented to person and oriented to place <Russel Rg MD - Last Filed: 08/26/22 13:07> Limitations: no limitations <Russel Rg MD - Last Filed: 08/26/22 13:07> HENMT Head: Yes normal to inspection, Yes normocephalic and Yes atraumatic <Russel Rg MD - Last Filed: 08/26/22 13:07> Ears: external ears normal <Russel Rg MD - Last Filed: 08/26/22 13:07> General nose exam: Normal external nose present <Russel Rg MD - Last Filed: 08/26/22 13:07> Face and sinus: Yes normal facial exam <Russel Rg MD - Last Filed: 08/26/22 13:07> Mouth: Normal oral and palatal mucosa present <Russel Rg MD - Last Filed: 08/26/22 13:07> Throat: Yes posterior oropharynx normal <Russel Rg MD - Last Filed: 08/26/22 13:07> Eyes General: appearance normal, both eyes and all related structures <Russel Rg MD - Last Filed: 08/26/22 13:07> Pupils: Equal, round and reactive pupils present <Russel Rg MD - Last Filed: 08/26/22 13:07> Neck Neck: Yes normal visual inspection, Yes no lymphadenopathy, Yes trachea midline and Yes supple <Russel Rg MD - Last Filed: 08/26/22 13:07> Chest Chest palpation & inspection: normal inspection of the chest and normal palpation of entire chest wall <Russel Rg MD - Last Filed: 08/26/22 13:07> Resp Effort & Inspection: normal respiratory effort and able to speak in complete sentences <Russel Rg MD - Last Filed: 08/26/22 13:07> Auscultation: clear to auscultation bilaterally <Russel Rg MD - Last Filed: 08/26/22 13:07> Cardio Rate: regular rate <Russel Rg MD - Last Filed: 08/26/22 13:07> Rhythm: regular rhythm <Russel Rg MD - Last Filed: 08/26/22 13:07> Heart sounds: S1 normal heart sound present, S2 normal heart sound present and no murmurs <Russel Rg MD - Last Filed: 08/26/22 13:07> GI Inspection: Yes normal to inspection <Russel Rg MD - Last Filed: 08/26/22 13:07> Palpation (GI): Soft to palpation, nontender and no guarding <Russel Rg MD - Last Filed: 08/26/22 13:07> Auscultation: normal bowel sounds <MD Hung Crockett Last Filed: 08/26/22 13:07> Back/Spine/Pelvis Other: Patient has tenderness palpation of the trapezius muscles bilaterally and thoracic paraspinal muscles bilaterally with spasm of these muscles. He also has tenderness palpation of his chest wall muscles diffusely. <Russel Rg MD - Last Filed: 08/26/22 13:07> Skin General skin exam: no rashes or lesions noted <Russel Rg MD - Last Filed: 08/26/22 13:07> Neuro General: oriented to person and oriented to place <Russel Rg MD - Last Filed: 08/26/22 13:07> Cranial nerves: Yes CN's II-XII intact bilaterally and Yes Equal, round and reactive pupils present <Russel Rg MD - Last Filed: 08/26/22 13:07> Cognition (Neuro): normal cognition <Russel Rg MD - Last Filed: 08/26/22 13:07> Motor exam (neuro): 5/5 motor strength present throughout <Russel Rg MD - Last Filed: 08/26/22 13:07> Extrem General: Yes normal to inspection <Russel Rg MD - Last Filed: 08/26/22 13:07> Psych Appearance: grossly normal <Russel Rg MD - Last Filed: 08/26/22 13:07> Speech and movement: Normal speech and movement present <Russel Rg MD - Last Filed: 08/26/22 13:07> Affect: normal affect <Russel Rg MD - Last Filed: 08/26/22 13:07> Attitude: cooperative <Russel Rg MD - Last Filed: 08/26/22 13:07> Thought process: Normal thought process present <Russel Rg MD - Last Filed: 08/26/22 13:07> Thought content: Normal thought content present <Russel Rg MD - Last Filed: 08/26/22 13:07> Course Course Course Narrative: 61-year-old primarily Malagasy male past medical history significant for hypertension, hyperlipidemia presents cough, congestion, chest pain. Patient reports that he returned from [place] 4 days ago. Plan for cardiac workup given the patient's age and risk factors. His pain is reproducible <Nick Mcginnis - Last Filed: 08/26/22 11:17> Medical Decision Making Medical Decision Making MDM Narrative: 61-year-old male who presents emergency department for evaluation of upper back muscle pain and spasm and chest pain. Examination did reveal tenderness palpation of his trapezius muscles his thoracic paraspinal muscles in his chest muscles. Laboratory evaluation was ordered including a CBC, CMP, PT/INR, PTT, troponin. Chest x-ray and EKG were also obtained. 1259: My interpretation patient's laboratory evaluation is as follows: CBC was normal. CMP was normal. Troponin was below detectable limits. Coags were normal. Twelve EKG revealed no ischemic or injury pattern. Chest x-ray was unremarkable. Patient will be treated for musculoskeletal pain with ibuprofen, Tylenol, oxycodone and Flexeril. <Russel Rg MD - Last Filed: 08/26/22 13:07> Differential Diagnosis Differential diagnosis includes was not limited to myocardial injury, he has musculoskeletal pain, musculoskeletal spasm, pneumonia, pulmonary embolism <Russel Rg MD - Last Filed: 08/26/22 13:07> Lab Data [facility] Lab Attestation statement: I reviewed the patient's lab results. <Russel Rg MD - Last Filed: 08/26/22 13:07> See [facility] <Russel Rg MD - Last Filed: 08/26/22 13:07> Result Diagrams: 08/26/22 11:29 08/26/22 11:29 <Nick Mcginnis - Last Filed: 08/26/22 11:17> Labs: Lab Results 08/26/22 08/26/22 08/26/22 Range/Units 11:29 11:29 11:29 WBC 9.8 (4.8-10.8) X10*3/uL RBC 5.26 (4.60-5.80) X10*6/uL Hgb 15.2 (14.0-18.0) g/dl Hct 45.5 (42.0-52.0) % MCV 86.5 (80.0-98.0) fL MCH 28.9 (27.0-33.0) pg MCHC 33.4 (31.0-36.0) g/dl RDW 13.9 (11.0-16.0) % Plt Count 169 (160-400) X10*3/uL MPV 10.8 (9.4-12.4) fL Immature Gran % (Auto) 0.5 H (0.0-0.4) % Neut % (Auto) 69.8 (45-73) % Lymph % (Auto) 17.4 L (20-40) % [place] % (Auto) 7.6 (2-11) % Eos % (Auto) 4.1 H (0-4) % Baso % (Auto) 0.6 (0-2) % Lymph # (Auto) 1.7 (1.2-4.9) X10*3/uL [place] # (Auto) 0.8 (0.1-1.2) X10*3/uL Eos # (Auto) 0.4 (0.0-0.4) X10*3/uL Baso # (Auto) 0.1 (0.0-0.2) X10*3/uL Abs Immat Gran (auto) 0.05 H (0.00-0.03) X10*3/uL Absolute Neuts (auto) 6.9 (2.0-8.3) x10*3/uL Absolute Nucleated RBC 0.000 (0.0-0.012) X10*3/uL Nucleated RBC % (auto) 0.0 (0.0-0.2) /100WBC PT 11.8 (10.0-13.1) SEC INR 1.0 (0.9-1.1) APTT 34.1 (26.0-36.4) SEC Sodium 141 (135-145) mmol/L Potassium 4.0 (3.3-5.1) mmol/L Chloride 107 (96-108) mmol/L Carbon Dioxide 29 (22-29) mmol/L Anion Gap 9 L (12-20) BUN 17 H (9-16) mg/dL Creatinine 0.84 (0.5-1.4) mg/dL Estim Creat Clear Calc 123.8 Estimated GFR > 60 Random Glucose 115 (60-115) mg/dL Calcium 9.0 (8.4-10.2) mg/dL Magnesium 1.9 (1.6-2.6) mg/dL Total Bilirubin 1.3 H (0.0-1.0) mg/dL AST 18 (5-37) U/L ALT 20 (0-40) U/L Alkaline Phosphatase 50 (39-117) U/L Troponin I High Sens (<3.5-35.0) ng/L B-Natriuretic Peptide (<100) pg/mL Total Protein 6.9 (6.5-8.0) g/dL Albumin 4.0 (3.5-5.0) g/dL Lipase 19 (8-78) U/L Influenza Type A (PCR) (Negative) Influenza Type B (PCR) (Negative) RSV RNA Qual (PCR) (Negative) SARS-CoV-2 RNA (RT-PCR) (Negative) 08/26/22 08/26/22 08/26/22 Range/Units 11:29 11:29 11:29 WBC (4.8-10.8) X10*3/uL RBC (4.60-5.80) X10*6/uL Hgb (14.0-18.0) g/dl Hct (42.0-52.0) % MCV (80.0-98.0) fL MCH (27.0-33.0) pg MCHC (31.0-36.0) g/dl RDW (11.0-16.0) % Plt Count (160-400) X10*3/uL MPV (9.4-12.4) fL Immature Gran % (Auto) (0.0-0.4) % Neut % (Auto) (45-73) % Lymph % (Auto) (20-40) % [place] % (Auto) (2-11) % Eos % (Auto) (0-4) % Baso % (Auto) (0-2) % Lymph # (Auto) (1.2-4.9) X10*3/uL [place] # (Auto) (0.1-1.2) X10*3/uL Eos # (Auto) (0.0-0.4) X10*3/uL Baso # (Auto) (0.0-0.2) X10*3/uL Abs Immat Gran (auto) (0.00-0.03) X10*3/uL Absolute Neuts (auto) (2.0-8.3) x10*3/uL Absolute Nucleated RBC (0.0-0.012) X10*3/uL Nucleated RBC % (auto) (0.0-0.2) /100WBC PT (10.0-13.1) SEC INR (0.9-1.1) APTT (26.0-36.4) SEC Sodium (135-145) mmol/L Potassium (3.3-5.1) mmol/L Chloride (96-108) mmol/L Carbon Dioxide (22-29) mmol/L Anion Gap (12-20) BUN (9-16) mg/dL Creatinine (0.5-1.4) mg/dL Estim Creat Clear Calc Estimated GFR Random Glucose (60-115) mg/dL Calcium (8.4-10.2) mg/dL Magnesium (1.6-2.6) mg/dL Total Bilirubin (0.0-1.0) mg/dL AST (5-37) U/L ALT (0-40) U/L Alkaline Phosphatase (39-117) U/L Troponin I High Sens < 2.7 (<3.5-35.0) ng/L B-Natriuretic Peptide 81 (<100) pg/mL Total Protein (6.5-8.0) g/dL Albumin (3.5-5.0) g/dL Lipase (8-78) U/L Influenza Type A (PCR) NEGATIVE (Negative) Influenza Type B (PCR) NEGATIVE (Negative) RSV RNA Qual (PCR) NEGATIVE (Negative) SARS-CoV-2 RNA (RT-PCR) NEGATIVE (Negative) <Nick Mcginnis - Last Filed: 08/26/22 11:17> Lab Results 08/26/22 08/26/22 08/26/22 Range/Units 11:29 11:29 11:29 WBC 9.8 (4.8-10.8) X10*3/uL RBC 5.26 (4.60-5.80) X10*6/uL Hgb 15.2 (14.0-18.0) g/dl Hct 45.5 (42.0-52.0) % MCV 86.5 (80.0-98.0) fL MCH 28.9 (27.0-33.0) pg MCHC 33.4 (31.0-36.0) g/dl RDW 13.9 (11.0-16.0) % Plt Count 169 (160-400) X10*3/uL MPV 10.8 (9.4-12.4) fL Immature Gran % (Auto) 0.5 H (0.0-0.4) % Neut % (Auto) 69.8 (45-73) % Lymph % (Auto) 17.4 L (20-40) % [place] % (Auto) 7.6 (2-11) % Eos % (Auto) 4.1 H (0-4) % Baso % (Auto) 0.6 (0-2) % Lymph # (Auto) 1.7 (1.2-4.9) X10*3/uL [place] # (Auto) 0.8 (0.1-1.2) X10*3/uL Eos # (Auto) 0.4 (0.0-0.4) X10*3/uL Baso # (Auto) 0.1 (0.0-0.2) X10*3/uL Abs Immat Gran (auto) 0.05 H (0.00-0.03) X10*3/uL Absolute Neuts (auto) 6.9 (2.0-8.3) x10*3/uL Absolute Nucleated RBC 0.000 (0.0-0.012) X10*3/uL Nucleated RBC % (auto) 0.0 (0.0-0.2) /100WBC PT 11.8 (10.0-13.1) SEC INR 1.0 (0.9-1.1) APTT 34.1 (26.0-36.4) SEC Sodium 141 (135-145) mmol/L Potassium 4.0 (3.3-5.1) mmol/L Chloride 107 (96-108) mmol/L Carbon Dioxide 29 (22-29) mmol/L Anion Gap 9 L (12-20) BUN 17 H (9-16) mg/dL Creatinine 0.84 (0.5-1.4) mg/dL Estim Creat Clear Calc 123.8 Estimated GFR > 60 Random Glucose 115 (60-115) mg/dL Calcium 9.0 (8.4-10.2) mg/dL Magnesium 1.9 (1.6-2.6) mg/dL Total Bilirubin 1.3 H (0.0-1.0) mg/dL AST 18 (5-37) U/L ALT 20 (0-40) U/L Alkaline Phosphatase 50 (39-117) U/L Troponin I High Sens (<3.5-35.0) ng/L B-Natriuretic Peptide (<100) pg/mL Total Protein 6.9 (6.5-8.0) g/dL Albumin 4.0 (3.5-5.0) g/dL Lipase 19 (8-78) U/L Influenza Type A (PCR) (Negative) Influenza Type B (PCR) (Negative) RSV RNA Qual (PCR) (Negative) SARS-CoV-2 RNA (RT-PCR) (Negative) 08/26/22 08/26/22 08/26/22 Range/Units 11:29 11:29 11:29 WBC (4.8-10.8) X10*3/uL RBC (4.60-5.80) X10*6/uL Hgb (14.0-18.0) g/dl Hct (42.0-52.0) % MCV (80.0-98.0) fL MCH (27.0-33.0) pg MCHC (31.0-36.0) g/dl RDW (11.0-16.0) % Plt Count (160-400) X10*3/uL MPV (9.4-12.4) fL Immature Gran % (Auto) (0.0-0.4) % Neut % (Auto) (45-73) % Lymph % (Auto) (20-40) % [place] % (Auto) (2-11) % Eos % (Auto) (0-4) % Baso % (Auto) (0-2) % Lymph # (Auto) (1.2-4.9) X10*3/uL [place] # (Auto) (0.1-1.2) X10*3/uL Eos # (Auto) (0.0-0.4) X10*3/uL Baso # (Auto) (0.0-0.2) X10*3/uL Abs Immat Gran (auto) (0.00-0.03) X10*3/uL Absolute Neuts (auto) (2.0-8.3) x10*3/uL Absolute Nucleated RBC (0.0-0.012) X10*3/uL Nucleated RBC % (auto) (0.0-0.2) /100WBC PT (10.0-13.1) SEC INR (0.9-1.1) APTT (26.0-36.4) SEC Sodium (135-145) mmol/L Potassium (3.3-5.1) mmol/L Chloride (96-108) mmol/L Carbon Dioxide (22-29) mmol/L Anion Gap (12-20) BUN (9-16) mg/dL Creatinine (0.5-1.4) mg/dL Estim Creat Clear Calc Estimated GFR Random Glucose (60-115) mg/dL Calcium (8.4-10.2) mg/dL Magnesium (1.6-2.6) mg/dL Total Bilirubin (0.0-1.0) mg/dL AST (5-37) U/L ALT (0-40) U/L Alkaline Phosphatase (39-117) U/L Troponin I High Sens < 2.7 (<3.5-35.0) ng/L B-Natriuretic Peptide 81 (<100) pg/mL Total Protein (6.5-8.0) g/dL Albumin (3.5-5.0) g/dL Lipase (8-78) U/L Influenza Type A (PCR) NEGATIVE (Negative) Influenza Type B (PCR) NEGATIVE (Negative) RSV RNA Qual (PCR) NEGATIVE (Negative) SARS-CoV-2 RNA (RT-PCR) NEGATIVE (Negative) <Russel Rg MD - Last Filed: 08/26/22 13:07> Independent Interpretation I performed an independent interpretation of an: EKG and Plain X-Ray <Russel Rg MD - Last Filed: 08/26/22 13:07> Interpretation: My independent interpretation patient's 12 EKG is as follows: Normal sinus rhythm rate of 77, normal [place], QRS and QTC interval, no ST segment elevation, no ST segment depression, no T-wave abnormalities. <Russel Rg MD - Last Filed: 08/26/22 13:07> Radiology Impression Discussion of test interpretation with radiology: I have reviewed the radiologist's reading. <Russel Rg MD - Last Filed: 08/26/22 13:07> Radiologist Impression: XR chest 2V IMPRESSION: No acute cardiopulmonary process. Dictated By:Jesus Manuel Voss MD <Russel Rg MD - Last Filed: 08/26/22 13:07> Discharge Plan Discharge Clinical Impression: Acute bilateral thoracic back pain, Chest pain <Nick Mcginnis - Last Filed: 08/26/22 11:17> Patient Disposition: Home, Self-Care <Nick Mcginnis - Last Filed: 08/26/22 11:17> Instructions: Thoracic Pain (ED) <Nick Mcginnis - Last Filed: 08/26/22 11:17> Additional Instructions: Your blood work was normal. Your EKG was unremarkable. Your chest x-ray was normal. Your pain is secondary to musculoskeletal injury and spasm. Take ibuprofen 200 mg pills, 2 pills every 6 hours as needed for pain. Take Tylenol (acetaminophen) 500 mg pills, 2 pills every 6 hours as needed for pain. For pain not relieved by ibuprofen or Tylenol take oxycodone 5 mg pills, 1 pill every 4 hours as needed for pain. Do not drive or work while taking this medication since they can cause sleepiness. Oxycodone is a narcotic medication that can be addicting. If you are concerned about addiction you can ask the pharmacist for less pills or do not get this prescription filled. Take Flexeril (cyclobenzaprine) 10 mg pills, 1 pill every 6-8 hours as needed for pain or spasm. This medication will make you sleepy. Do not drive or work while taking this medication. Follow-up with your doctor in 2 days. Please return to the emergency department if your symptoms get worse or if you develop any symptoms that are concerning to you. <Nick Mcginnis - Last Filed: 08/26/22 11:17> Prescriptions: New cyclobenzaprine 10 mg tablet 10 mg PO TID PRN (Reason: muscle pain or spasm) Qty: 20 0RF oxycodone 5 mg tablet 5 mg PO Q6H PRN (Reason: pain) Qty: 14 0RF Rx Instructions: Patient may request partial refill; Partial Fill upon patient request. No Action naproxen 500 mg tablet 500 mg PO BID Qty: 20 0RF cyclobenzaprine 10 mg tablet 10 mg PO TID PRN (Reason: muscle spasm) Qty: 20 0RF methylprednisolone [Medrol] 4 mg tablet 4 mg PO DAILY Qty: 7 0RF doxycycline hyclate 100 mg capsule 100 mg PO BID 7 Days Qty: 14 0RF cephalexin [Keflex] 500 mg capsule 500 mg PO QID 7 Days Qty: 28 0RF polymyxin B sulf-trimethoprim [Polytrim] 10,000 unit- 1 mg/mL drops 1 drp ophthalmic (eye) Q3H 7 Days Qty: 10 0RF Rx Instructions: while awake; do not exceed 6 doses in 24 hours oxycodone 5 mg tablet 5 mg PO Q8H PRN (Reason: severe pain (scale score 7-10)) Qty: 5 0RF Rx Instructions: Partial Fill upon patient request. lisinopril-hydrochlorothiazide 20-25 mg tablet 1 tab PO DAILY rosuvastatin 20 mg tablet 20 mg PO BEDTIME metoprolol succinate 25 mg tablet extended release 24 hr 25 mg PO DAILY lidocaine-prilocaine 2.5-2.5 % cream topical DAILY <Nick Mcginnis - Last Filed: 08/26/22 11:17>
[2022-08-26 11:34] LABS: MANUAL DIFF FLAG NO
[2022-08-26 11:35] LABS: Basophils Absolute Auto 0.1 X10*3/uL (0.0-0.2); Basophils Percent Auto 0.6 % (0-2); Eosinophils Absolute Auto 0.4 X10*3/uL (0.0-0.4); Eosinophils Percent Auto 4.1 % (0-4); Hematocrit 45.5 % (42.0-52.0); Hemoglobin 15.2 g/dl (14.0-18.0); Imm Gran Abs Auto 0.05 X10*3/uL (0.00-0.03); Imm Gran Pct Auto 0.5 % (0.0-0.4); Lymphocytes Absolute Auto 1.7 X10*3/uL (1.2-4.9); Lymphocytes Percent Auto 17.4 % (20-40); Mean Corpuscular HGB Conc 33.4 g/dl (31.0-36.0); Mean Corpuscular Hemoglobin 28.9 pg (27.0-33.0); Mean Corpuscular Volume 86.5 fL (80.0-98.0); Mean Platelet Volume 10.8 fL (9.4-12.4); Monocytes Absolute Auto 0.8 X10*3/uL (0.1-1.2); Monocytes Percent Auto 7.6 % (2-11); Neutrophils Absolute Auto 6.9 x10*3/uL (2.0-8.3); Neutrophils Percent Auto 69.8 % (45-73); Platelet Count 169 X10*3/uL (160-400); Red Blood Count 5.26 X10*6/uL (4.60-5.80); Red Cell Distribution Width 13.9 % (11.0-16.0); White Blood Count 9.8 X10*3/uL (4.8-10.8)
[2022-08-26 11:41] LABS: Prothrombin Time 11.8 SEC (10.0-13.1)
[2022-08-26 11:43] LABS: Partial Thromboplastin Time 34.1 SEC (26.0-36.4)
[2022-08-26 11:49] LABS: Alanine Aminotransferase 20 U/L (0-40); Alkaline Phosphatase 50 U/L (39-117); Anion Gap 9 (12-20); Aspartate Amino Transferase 18 U/L (5-37); Bilirubin Total 1.3 mg/dL (0.0-1.0); Blood Urea Nitrogen 17 mg/dL (9-16); Carbon Dioxide 29 mmol/L (22-29); Chloride 107 mmol/L (96-108); Creatinine Clr Calc Pharmacy 123.8; Estimated Glomerular Filt Rate > 60; Glucose Random 115 mg/dL (60-115); Lipase 19 U/L (8-78); Magnesium 1.9 mg/dL (1.6-2.6); Sodium 141 mmol/L (135-145); Total Protein 6.9 g/dL (6.5-8.0)
[2022-08-26 11:55] LABS: B Type Natriuretic Peptide 81 pg/mL (<100)
[2022-08-26 11:58] LABS: Troponin-I High Sensitivity < 2.7 ng/L (<3.5-35.0)
[2022-08-26 12:12] LABS: Influenza A PCR NEGATIVE (Negative); Influenza B PCR NEGATIVE (Negative); Resp Syncy Virus RNA Qual PCR NEGATIVE (Negative); SARS COV2 PCR INHOUSE NEGATIVE (Negative)
--- NOTE | 2022-08-26 12:43 | PC.NURSE ---
Pt currently sitting on the edge of the bed, complaints of 10/10 sternal pain at this time. AOx4. Stable on RA, able to answer all questions appropriately, awaiting further provider orders at this time.
== END 2022-08-26 13:10 | disposition home or self-care (01) ==
PROVIDERS: Physician Assistant; Emergency Provider Emergency Medicine Emergency Medical Services
DX: R07.89 Other chest pain (principal); R06.02 Shortness of breath; M79.10 Myalgia, unspecified site; M54.6 Pain in thoracic spine; Z20.822 Contact with and (suspected) exposure to COVID-19; Z20.828 Contact with and (suspected) exposure to other viral communicable diseases; Z79.899 Other long term (current) drug therapy
CPT/HCPCS: 0241U; 71046; 80053; 83690; 83735; 83880; 84484; 85025; 85610; 85730; 93005; 99284

== ENCOUNTER 2024-03-20 10:23 | Emergency (ER) | payer OTHER, SELFPAY ==
[2024-03-20 10:30] VITALS: BP 158/104; PULSE 63; RESP 16; TEMP 36.6; O2SAT 96; BMI 44.1
[2024-03-20 12:04] VITALS: BP 116/60; PULSE 57; RESP 16; TEMP 36.6; O2SAT 96
[2024-03-20] MEDS: Fluorescein Sodium STRIP 1 STRIP EYE-RIGHT (12:29)
[2024-03-20] MEDS: Tetracaine HCl/PF 0.5% Oph Sol 4 ML DROPS 3 DROP EYE-BOTH (12:29)
--- NOTE | 2024-03-20 12:48 | MHC.EDTECH ---
Patient states he wears glasses
--- NOTE | 2024-03-20 13:31 | ED.GENADULT ---
HPI - General Adult General Chief complaint: Eye Problems Stated complaint: something bothering eye Time Seen by Provider: 03/20/24 11:13 Source: patient Mode of arrival: ambulatory Limitations: no limitations History of Present Illness ED Provider: Jacques Hussein HPI narrative: 63 yold male with pmh of Hypertension presents to the ED for sensation of right eye foreign body for one weeks. Patient states was doing work under the car and something maybe fell unto his right eye. patient denies any headache, nausea, vomiting, dizziness, loss of vision, blurry vision, or change in vision. Patient felt like something is in the right corner of his right lower eyelid eye. Related Data Home Medications ?Medication ?Instructions ?Recorded ?Confirmed lidocaine-prilocaine 2.5 %-2.5 % g topical DAILY 06/18/22 06/18/22 topical cream lisinopril 20 1 tab PO DAILY 06/18/22 06/18/22 mg-hydrochlorothiazide 25 mg tablet metoprolol succinate 25 mg 25 mg PO DAILY 06/18/22 06/18/22 tablet,extended release 24 hr rosuvastatin 20 mg tablet 20 mg PO BEDTIME 06/18/22 06/18/22 Previous Rx's ?Medication ?Instructions ?Recorded naproxen 500 mg tablet 500 mg PO BID #20 tabs 02/27/20 cyclobenzaprine 10 mg tablet 10 mg PO TID PRN muscle spasm #20 03/28/20 tabs methylprednisolone 4 mg tablet 4 mg PO DAILY #7 tabs 03/28/20 (Medrol) cephalexin 500 mg capsule (Keflex) 500 mg PO QID 7 days #28 caps 04/09/20 doxycycline hyclate 100 mg capsule 100 mg PO BID 7 days #14 caps 04/09/20 polymyxin B sulfate 10,000 1 drp ophthalmic (eye) Q3H 7 days 02/28/21 unit-trimethoprim 1 mg/mL eye #10 mL drops (Polytrim) oxycodone 5 mg tablet 5 mg PO Q8H PRN severe pain (scale 01/22/22 score 7-10) #5 tabs cyclobenzaprine 10 mg tablet 10 mg PO TID PRN muscle pain or 08/26/22 spasm #20 tabs oxycodone 5 mg tablet 5 mg PO Q6H PRN pain #14 tabs 04/23/23 erythromycin 5 mg/gram (0.5 %) eye 0.5 inch ophthalmic (eye) QID 7 03/20/24 ointment days #3.5 grams Allergies Allergy/AdvReac Type Severity Reaction Status Date / Time codeine [CODEINE] Allergy Intermediate RASH Verified 03/20/24 10:35 Review of Systems Review of Systems: Right eye discomfort Yes all other systems are reviewed and are negative [facility] Past Medical History Medical History Chronic back pain HTN (hypertension) Social History Social History Advance Directives: No Advance Directives Information Provided: Yes Physical Exam ED Vital Signs: Vital Signs - 24 hr 03/20/24 10:30 03/20/24 12:04 Temperature 97.8 F 97.8 F Pulse Rate 63 57 Respiratory Rate 16 16 Blood Pressure 158/104 H 116/60 Pulse Oximetry 96 96 Oxygen Delivery Method Room Air Room Air BMI result Body Mass Index 44.1 Const General: cooperative, healthy appearing, comfortable, no acute distress, well developed, alert and awake Orientation/consciousness: patient oriented x3 HENMT Head: Yes normal to inspection, Yes No palpable skull fracture present, Yes normocephalic and Yes atraumatic Ears: hearing grossly normal bilaterally, external ears normal, TM's normal bilaterally, TM normal on the right, TM normal on the left, EAC's normal, mastoids normal and no periauricular adenopathy Throat: Yes posterior oropharynx normal, Yes tonsils normal and Yes uvula midline Eyes Other: Right Eyes: Tonometry pressure is 13. Tetracaine placed in the eye also fluorescein dye. Negative for signs of corneal abrasion, corneal ulcer, globe rupture, hyphema, or orbital cellulitis. Corner of right lower eyelid positive for stye versus white foreign body not able to retrieve. Negative for foreign body of the actual corneal. Visual acuity 20/30. Bedside ultrasound negative for signs of retinal or vitreous hemorrhage detachment. Negative for eye redness Left eye: normal: Tonometry pressure 13. Tetracaine placed in the eye also fluorescein dye. Negative for signs of corneal abrasion, corneal ulcer, globe rupture, hyphema, or orbital cellulitits. Visual acuity is 20/30. Negative for eye redness Eyes/upper lids images: 1. Inner eyelid positive for white spots that are not removable. Most likely more stye than foreign body. Neck Neck: Yes normal visual inspection, Yes full ROM, Yes no lymphadenopathy, Yes no meningeal signs, Yes trachea midline, Yes supple, No anterior neck swelling and No tender Chest Chest palpation & inspection: normal inspection of the chest and normal palpation of entire chest wall Resp Effort & Inspection: normal respiratory effort and able to speak in complete sentences Auscultation: clear to auscultation bilaterally Cardio Jugular venous distension: no JVD Heart sounds: S1 normal heart sound present and S2 normal heart sound present GI Inspection: Yes normal to inspection Palpation (GI): Soft to palpation, not firm, nontender, no guarding and not rigid General: No CVA tenderness and Yes no CVA tenderness Back/Spine/Pelvis Back: no CVA tenderness, No CVA tenderness and No back tenderness Skin General skin exam: no rashes or lesions noted, elasticity normal and turgor normal Neuro General: patient oriented x3, gait normal, tone normal, moves all extremities, Normal light touch and pain sensation, no meningeal signs, no focal motor deficits, CN's II-XI intact bilaterally and normal sensation to monofilament Extrem General: Yes normal to inspection, Yes full ROM and Yes capillary refill normal Psych Appearance: grossly normal, well kempt and not disheveled Medications Administered Discontinued Medications Generic Name Dose Route Start Last Admin Trade Name Freq PRN Reason Stop Dose Admin Fluorescein Sodium 1 strip 03/20/24 12:17 03/20/24 12:29 Fluorescein Sodium Strip EYE-RIGHT 03/20/24 12:18 1 strip ONCE ONE Administration Tetracaine HCl 3 drop 03/20/24 12:17 03/20/24 12:29 Tetracaine Hcl/Pf 0.5% Oph Magaly 4 Ml Drops EYE-BOTH 03/20/24 12:18 3 drop ONCE ONE Administration Medical Decision Making Medical Decision Making MDM Narrative: 63-year-old male presents to ED for right eye discomfort for the past 4 days thinks something went into the corner of his right eye. Physical exam negative for signs of glaucoma, corneal abrasion, corneal ulcer, retinal detachment, orbital cellulitis, foreign body on conea or rusting or globe rupture. Right inner lower eyelid positive for white spot that is not removable. foreign body versus stye. I believe is more stye. Patient informed to follow-up with eye clinic. Patient will be discharge with erythromycin given Tdap informed to follow-up with Josh. Differential Diagnosis Differential Diagnoses: The differential diagnosis associated with the presentation includes (Foreign bodies, stye, corneal abrasion, corneal ulcer) Admission/Observation Consideration of admission/observation: Escalation of care including admission/observation considered External Record Review External record reviewed: Other (Visits) Prescription Management I considered prescription management with: Antibiotic Discharge Plan Discharge Clinical Impression: Hordeolum, Foreign body, eye Patient Disposition: Home, Self-Care Instructions: Stye (ED), Eye Foreign Body (ED) Additional Instructions: Physical exam indicate more stye then foreign body, but are recommend you follow-up with our bookkeeping machine operator. You will be given eye antibiotic ointment. Recommend massaging right lower eyelid with warm compression 4 times a day. Return to the ED immediately for any eye pain, change in vision, loss of vision, slurred speech, facial droop, paralysis of extremities, dizziness, nausea, vomiting, severe headache, or any other concerning symptoms. Prescriptions: New erythromycin 5 mg/gram (0.5 %) ointment 0.5 inch ophthalmic (eye) QID 7 Days Qty: 3.5 0RF No Action naproxen 500 mg tablet 500 mg PO BID Qty: 20 0RF cyclobenzaprine 10 mg tablet 10 mg PO TID PRN (Reason: muscle spasm) Qty: 20 0RF methylprednisolone [Medrol] 4 mg tablet 4 mg PO DAILY Qty: 7 0RF doxycycline hyclate 100 mg capsule 100 mg PO BID 7 Days Qty: 14 0RF cephalexin [Keflex] 500 mg capsule 500 mg PO QID 7 Days Qty: 28 0RF polymyxin B sulf-trimethoprim [Polytrim] 10,000 unit- 1 mg/mL drops 1 drp ophthalmic (eye) Q3H 7 Days Qty: 10 0RF Rx Instructions: while awake; do not exceed 6 doses in 24 hours oxycodone 5 mg tablet 5 mg PO Q8H PRN (Reason: severe pain (scale score 7-10)) Qty: 5 0RF Rx Instructions: Partial Fill upon patient request. cyclobenzaprine 10 mg tablet 10 mg PO TID PRN (Reason: muscle pain or spasm) Qty: 20 0RF oxycodone 5 mg tablet 5 mg PO Q6H PRN (Reason: pain) Qty: 14 0RF Rx Instructions: Patient may request partial refill; Partial Fill upon patient request. lisinopril-hydrochlorothiazide 20-25 mg tablet 1 tab PO DAILY rosuvastatin 20 mg tablet 20 mg PO BEDTIME metoprolol succinate 25 mg tablet extended release 24 hr 25 mg PO DAILY lidocaine-prilocaine 2.5-2.5 % cream topical DAILY Referrals: Jose Rafael Moreno [Physician] - (Stye versus right inner eyelid for body. White spot tender non movable. Physical indicate more stye.) Stand Alone Forms: Work/School Release Interventions: ED Discharge Assessment Last Done: 03/20/24 14:20 Discharge Date/Time: 03/20/24 14:21 Print Language: Turkish
[2024-03-20 14:20] VITALS: BP 116/60; PULSE 57; RESP 16; TEMP 36.6; O2SAT 96
--- NOTE | 2024-03-20 14:20 | PC.NURSE ---
patient states he is up to date on tetanus
== END 2024-03-20 14:21 | disposition home or self-care (01) ==
PROVIDERS: Emergency Provider Student in an Organized Health Care Education/Training Program
DX: H00.013 Hordeolum externum right eye, unspecified eyelid (principal); T15.81XA Foreign body in other and multiple parts of external eye, right eye, initial encounter; W44.9XXA Unspecified foreign body entering into or through a natural orifice, initial encounter; Y93.9 Activity, unspecified; Y92.9 Unspecified place or not applicable; Y99.9 Unspecified external cause status; I10 Essential (primary) hypertension
CPT/HCPCS: 99283